=== PATIENT | female | born 1995 | race Hispanic/Latino ===

== ENCOUNTER 2016-12-23 13:17 | Inpatient (IN) | payer OTHER ==
[~2016-12-23] VITALS: Ht 160 cm; Wt 42.5 kg
[2016-12-23 14:20] LABS: HEMATOCRIT 34.1 % (36.0-46.0); MCH 28.6 PG (29.0-34.0); MCHC 33.1 G/DL (30.0-36.0); MCV 86.3 FL (83-99); MEAN PLAT.VOLUME 11.2 uM^3 (9.5-12.4); PLATELET COUNT 219 K/uL (156-360); RBC DIS.WIDTH-CV 13.5 % (11.8-14.6); RBC DIS.WIDTH-SD 42.4 % (39-53); RED BLOOD COUNT 3.95 M/uL (3.80-5.20); WHITE BLOOD COUNT 17.6 K/uL (4.1-10.2)
[2016-12-23 14:29] LABS: CHLORIDE 104 mEq/L (99-109); POTASSIUM 3.9 mEq/L (3.7-5.4); SODIUM 137 mEq/L (136-147)
[2016-12-23 14:31] LABS: GLUCOSE 89 mg/dL (70-99)
[2016-12-23 14:32] LABS: ANION GAP 12 MEQ/L (2-14)
[2016-12-23 14:33] LABS: TOTAL BILIRUBIN 0.8 mg/dL (0.0-1.0)
[2016-12-23 14:34] LABS: ALKALINE PHOSPHATASE 62 IU/L (3-129)
[2016-12-23 14:35] LABS: GFR ESTIMATE (CALCULATED) > 59 mL/min/
[2016-12-23 14:36] LABS: UREA NITROGEN (BUN) 10 mg/dL (9-23)
[2016-12-23 14:59] LABS: INTERNAL CONTROL VALID? YES; MONOSPOT (MONONUCLEOSIS SEROL) NEGATIVE
[2016-12-23] MEDS ORDERED: OMNICEF50 MG/1 ML PO (17:08)
[2016-12-23 20:56] VITALS: BP 103/64
[2016-12-23 23:55] VITALS: BP 95/54
[2016-12-24 03:58] VITALS: BP 101/71
[2016-12-24 06:04] LABS: ANION GAP 9 MEQ/L (2-14); CHLORIDE 110 MEQ/L (99-109); GFR ESTIMATE (CALCULATED) > 59 mL/min/; GLUCOSE 126 mg/dL (70-99); POTASSIUM 4.1 MEQ/L (3.7-5.4); SAMPLE HEMOLYSIS CHECK 0; SAMPLE ICTERIC CHECK 0; SAMPLE LIPEMIA CHECK 0; SODIUM 140 MEQ/L (136-147); UREA NITROGEN (BUN) 8 mg/dL (9-23)
[2016-12-24 06:23] LABS: HEMATOCRIT 27.3 % (36.0-46.0); MCH 28.9 PG (29.0-34.0); MCV 87.8 FL (83-99); PLATELET COUNT 198 K/uL (156-360); RBC DIS.WIDTH-CV 13.8 % (11.8-14.6); WHITE BLOOD COUNT 10.5 K/uL (4.1-10.2)
[2016-12-24 06:24] LABS: RED BLOOD COUNT 3.11 M/uL (3.80-5.20)
[2016-12-24 08:05] VITALS: BP 102/72
[2016-12-24 11:05] VITALS: BP 93/57
[2016-12-24 16:06] VITALS: BP 100/64
[2016-12-24 20:10] VITALS: BP 103/60
[2016-12-25 04:53] LABS: EOSINOPHIL (%) 0.2 % (0-5); HEMATOCRIT 27.3 % (36.0-46.0); IMMATURE GRANULOCYTE (%) 0.5 % (0.0-0.7); IMMATURE GRANULOCYTE COUNT 0.1 K/uL; INSTRUMENT ABS NEUTROPHIL CT 6.6 K/uL; LYMPHOCYTE COUNT 3.8 K/uL (1.0-2.8); MCH 27.9 PG (29.0-34.0); MCHC 32.2 G/DL (30.0-36.0); MCV 86.7 FL (83-99); MEAN PLAT.VOLUME 11.8 uM^3 (9.5-12.4); MONOCYTE (%) 5.4 % (3-12); MONOCYTE COUNT 0.6 K/uL (0-0.8); NEUTROPHIL (%) 59.2 % (45-76); NEUTROPHIL COUNT 6.6 K/uL (1.8-6.4); PLATELET COUNT 240 K/uL (156-360); RBC DIS.WIDTH-CV 13.9 % (11.8-14.6); RBC DIS.WIDTH-SD 43.8 % (39-53); RED BLOOD COUNT 3.15 M/uL (3.80-5.20); WHITE BLOOD COUNT 11.1 K/uL (4.1-10.2)
[2016-12-25 05:09] LABS: CHLORIDE 112 mEq/L (99-109); POTASSIUM 3.4 mEq/L (3.7-5.4); SODIUM 143 mEq/L (136-147)
[2016-12-25 05:12] LABS: ANION GAP 8 MEQ/L (2-14); GLUCOSE 92 mg/dL (70-99)
[2016-12-25 05:15] LABS: GFR ESTIMATE (CALCULATED) > 59 mL/min/
[2016-12-25 05:16] LABS: UREA NITROGEN (BUN) 7 mg/dL (9-23)
[2016-12-25 08:00] VITALS: BP 100/61
[2016-12-25 12:23] VITALS: BP 104/60
[2016-12-25 13:08] VITALS: BP 110/72
[2016-12-25 15:33] VITALS: BP 104/66
[2016-12-25 19:00] VITALS: BP 93/64
[2016-12-26] VITALS: BP 106/71
[2016-12-26 06:50] VITALS: BP 95/52
[2016-12-26 07:27] LABS: EOSINOPHIL (%) 2.1 % (0-5); EOSINOPHIL COUNT 0.1 K/uL (0-0.3); HEMATOCRIT 29.5 % (36.0-46.0); IMMATURE GRANULOCYTE (%) 0.2 % (0.0-0.7); INSTRUMENT ABS NEUTROPHIL CT 2.7 K/uL; LYMPHOCYTE COUNT 2.8 K/uL (1.0-2.8); MCH 28.9 PG (29.0-34.0); MCHC 33.2 G/DL (30.0-36.0); MEAN PLAT.VOLUME 11.5 uM^3 (9.5-12.4); MONOCYTE (%) 8.7 % (3-12); MONOCYTE COUNT 0.5 K/uL (0-0.8); NEUTROPHIL (%) 43.2 % (45-76); NEUTROPHIL COUNT 2.7 K/uL (1.8-6.4); PLATELET COUNT 261 K/uL (156-360); RBC DIS.WIDTH-CV 13.7 % (11.8-14.6); RBC DIS.WIDTH-SD 43.7 % (39-53); RED BLOOD COUNT 3.39 M/uL (3.80-5.20); WHITE BLOOD COUNT 6.2 K/uL (4.1-10.2)
[2016-12-26 07:36] LABS: ANION GAP 9 MEQ/L (2-14); CHLORIDE 107 MEQ/L (99-109); GFR ESTIMATE (CALCULATED) > 59 mL/min/; GLUCOSE 83 mg/dL (70-99); POTASSIUM 3.8 MEQ/L (3.7-5.4); SAMPLE HEMOLYSIS CHECK 0; SAMPLE ICTERIC CHECK 0; SAMPLE LIPEMIA CHECK 0; SODIUM 141 MEQ/L (136-147); UREA NITROGEN (BUN) 6 mg/dL (9-23)
[2016-12-26 15:45] VITALS: BP 101/58
[2016-12-26] MEDS ORDERED: AUGMENTIN875 MG PO (17:58)
== END 2016-12-26 19:02 | disposition home or self-care (01) | DRG 153 ==
LOC: EME 13:17 → 4EAST 18:41 → EDOF 18:41 → 2EAST 18:41 → ENRESERV 18:43 → 4EAST 20:41 → ENRESERV 12-25 10:06 → 2EAST 12-25 13:00
PROVIDERS: Hospitalist; Nurse Practitioner Family; Student in an Organized Health Care Education/Training Program
PROC: 0CJY8ZZ Inspection of Mouth and Throat, Via Natural or Artificial Opening Endoscopic (ICD-10-PCS; principal; 2016-12-25)
DX: J36 Peritonsillar abscess (principal); E87.6 Hypokalemia; R00.0 Tachycardia, unspecified; M54.9 Dorsalgia, unspecified; R53.1 Weakness; K59.00 Constipation, unspecified
CPT/HCPCS: 70491; 80048; 80053; 85025; 85027; 85651; 86308; 86664; 86665; 87040; 87081; 93005; 99281; 99285; J0295; J1100; J1200; J1650; J2405; J3370; J3480; J7030; J7050